=== PATIENT | female | born 1955 | race Two or more races ===

== ENCOUNTER 2018-02-09 18:29 | Emergency (ER) | END 2018-02-09 19:38 | disposition home or self-care (01) | DX: B02.9 Zoster without complications (principal); I10 Essential (primary) hypertension; J45.909 Unspecified asthma, uncomplicated; Z79.899 Other long term (current) drug therapy ==

== ENCOUNTER 2019-11-13 16:28 | Inpatient (IN) | payer MEDICAID ==
[~2019-11-13] VITALS: Ht 160 cm; Wt 90.7 kg
[~2019-11-13 16:28] MED LIST: INHALER; METOPROLOL
[2019-11-13] MEDS ORDERED: ALBUTEROL SULFATE 8 GM HFA.AER.AD IH STA (16:38)
[2019-11-13] MEDS ORDERED: methylPREDNISolone SOD SUCC 125 MG/2 ML VIAL IV ONE (16:45)
--- NOTE | 2019-11-13 16:45 | NUR ---
Pt and family unable to provide information about current home medications at this time.
[2019-11-13] MEDS ORDERED: TERBUTALINE SULFATE 1 MG/1 ML VIAL ONE (16:58)
[2019-11-13] MEDS ORDERED: methylPREDNISolone SOD SUCC 125 MG/2 ML VIAL ONE (16:58)
[2019-11-13] MEDS ORDERED: MAGNESIUM SULFATE/D5W 200 ML ONE (16:59)
[2019-11-13] MEDS ORDERED: TERBUTALINE SULFATE 1 MG/1 ML VIAL SQ ONE (17:00)
[2019-11-13] MEDS ORDERED: MAGNESIUM SULFATE 2 GM in IV DEXTROSE 5% 100 ML IV ONE (17:00)
--- NOTE | 2019-11-13 17:24 | NUR ---
ABG, portable chest x-ray, blood draw & swab for COVID collected, pending results. Monitored closely. Comfort, isolation & safety measures maintained.
[2019-11-13 17:25] LABS: BASOPHILS # (AUTO) 0.2 K/uL (0.0-8.0); BASOPHILS % (AUTO) 1.4 % (0.0-2.0); EOSINOPHILS # (AUTO) 2.1 K/uL (0.0-0.7); EOSINOPHILS % (AUTO) 16.4 % (0.0-7.0); HEMATOCRIT 37.2 % (31.2-41.9); HEMOGLOBIN 12.3 g/dL (10.9-14.3); LYMPHOCYTES # (AUTO) 1.6 K/uL (20.0-40.0); MEAN CORPUSCULAR HEMOGLOBIN 29.4 uug (24.7-32.8); MEAN CORPUSCULAR HGB CONC 33 g/dL (32.3-35.6); MEAN CORPUSCULAR VOLUME 88.6 fL (75.5-95.3); MONOCYTES # (AUTO) 0.7 K/uL (2.0-10.0); MONOCYTES % (AUTO) 5.7 % (0.0-11.0); NEUTROPHILS # (AUTO) 8.5 K/uL (1.8-8.9); NEUTROPHILS % (AUTO) 64.5 % (38.5-71.5); PLATELET COUNT (AUTO) 293 K/uL (179-408); WHITE BLOOD COUNT (AUTO) 13.1 K/uL (3.8-11.8)
[2019-11-13 17:26] LABS: ABG BASE EXCESS 1.5 mmol/L; ABG PCO2 40.4 mmHg (35.0-45.0); ABG PH 7.426 (7.350-7.450); ABG PO2 95.3 mmHg (75.0-100.0); ABG SITE RIGHT RADIAL; COHb 0.9 % (0.5-1.5); MetHb 0.4 % (0.0-1.5); O2Hb 96.2 % (94.0-97.0); VENT MODE Nasal Cannula
--- NOTE | 2019-11-13 17:27 | NUR ---
MD is talking to patient's family in ER waiting room.
[2019-11-13 17:40] LABS: CREATININE 0.9 mg/dL (0.6-1.3); POTASSIUM 3.7 mmol/L (3.5-5.1)
[2019-11-13 17:45] LABS: BILIRUBIN,DIRECT 0.1 mg/dL (0.0-0.2); BILIRUBIN,TOTAL 0.3 mg/dL (0.2-1.0); TOTAL PROTEIN, SERUM 7.4 g/dL (6.4-8.2)
--- NOTE | 2019-11-13 18:04 | NUR ---
Bed 320 (with nurse Teresa assigned from overnight cashier) was given by dry pan charger Rohoni. Patient feels a little better.
--- NOTE | 2019-11-13 18:39 | NUR ---
Patient is resting comfortably on gurney with eyes closed in high-fowlers position, for admission to 3rd floor after 1930@this time.
[2019-11-13] MEDS ORDERED: ONDANSETRON 4 MG/2 ML VIAL IV PRN (18:45)
[2019-11-13] MEDS ORDERED: IPRATROPIUM BROMIDE 0.5 MG/2.5 ML NEBU NEB PRN (18:45)
[2019-11-13] MEDS ORDERED: HYDROCODONE/APAP 5-325MG TABLET PO PRN (18:45)
[2019-11-13] MEDS ORDERED: Z GUARD REMEDY PASTE 57 GM TUBE TOP PRN (18:45)
[2019-11-13] MEDS ORDERED: MAGNESIUM HYDROXIDE 30 ML LIQUID UDC PO PRN (18:45)
[2019-11-13] MEDS ORDERED: ALBUTEROL SULFATE 2.5 MG/ 0.5 ML NEBU NEB PRN (18:45)
[2019-11-13] MEDS ORDERED: ACETAMINOPHEN 325 MG TABLET PO PRN (18:45)
--- NOTE | 2019-11-13 18:49 | NUR ---
Unverified inpatient medication orders seen in [facility], pending our pharmacist to verify these inpatient meds@this time.
--- NOTE | 2019-11-13 18:59 | NUR ---
Patient is awake now, with intermittent congestive coughing heard, monitored closely.
--- NOTE | 2019-11-13 19:01 | NUR ---
Hands off report given to RN Rolando, patient is still for transfer to telemtry floor, pending RN acceptance.
--- NOTE | 2019-11-13 19:04 | NUR ---
Assumed care of patient. Awaiting inpatient admission at this time. No acute distress noted.
--- NOTE | 2019-11-13 19:40 | NUR ---
Report given to Teresa ROBINS on Tele
--- NOTE | 2019-11-13 19:54 | NUR ---
Pt. admitted to Tele , under care of Rudolph Davis List completed
--- NOTE | 2019-11-13 20:05 | NUR ---
ADMITTED TO RM 320 VIA GURNEY FROM ER W/ ADM DX OF RESP. FAILURE/ ACUTE ASTHMA. ALERT & ORIENTED X4. HEP LOCK IN ON R HAND INTACT & PATENT. PLACED ON O2 @ 2LNC W/ O2 SAT OF 95%. KEPT HOB ELEVATED PER PT. REQUEST. NOT IN ANY DISTRESS.
[2019-11-13 20:21] VITALS: BP 108/47
[2019-11-13] MEDS: ENOXAPARIN SODIUM 40 MG/0.4 ML DISP.SYRIN SQ SCH (20:59)
--- NOTE | 2019-11-14 | NUR ---
PT. SLEPT INTERMITENTLY. NOT IN ANY DISTRESS.
[2019-11-14] MEDS: methylPREDNISolone SOD SUCC 40 MG/ML VIAL IV SCH ×5 (00:01→23:34)
[2019-11-14 00:15] VITALS: BP 115/46
--- NOTE | 2019-11-14 06:00 | NUR ---
HEP LOCK INTACT & PATENT. NOT IN NAY DISTRESS.
[2019-11-14 06:21] VITALS: BP 119/53
[2019-11-14] MEDS: PANTOPRAZOLE SODIUM 40 MG TABLET.DR PO SCH (06:21)
[2019-11-14 06:46] LABS: BASOPHILS # (AUTO) 0.1 K/uL (0.0-8.0); BASOPHILS % (AUTO) 0.6 % (0.0-2.0); EOSINOPHILS % (AUTO) 0.1 % (0.0-7.0); HEMATOCRIT 37.4 % (31.2-41.9); HEMOGLOBIN 12.5 g/dL (10.9-14.3); LYMPHOCYTES % (AUTO) 9.7 % (20.5-51.5); MEAN CORPUSCULAR HEMOGLOBIN 29.4 uug (24.7-32.8); MEAN CORPUSCULAR HGB CONC 33 g/dL (32.3-35.6); MONOCYTES # (AUTO) 0.1 K/uL (2.0-10.0); MONOCYTES % (AUTO) 0.7 % (0.0-11.0); NEUTROPHILS # (AUTO) 9.4 K/uL (1.8-8.9); NEUTROPHILS % (AUTO) 88.9 % (38.5-71.5); PLATELET COUNT (AUTO) 272 K/uL (179-408); RED BLOOD CELL COUNT(AUTO) 4.25 MIL/uL (3.63-4.92); WHITE BLOOD COUNT (AUTO) 10.5 K/uL (3.8-11.8)
[2019-11-14 06:59] LABS: CREATININE 0.6 mg/dL (0.6-1.3); MAGNESIUM 2.3 mg/dL (1.8-2.4); PHOSPHOROUS 2.8 mg/dL (2.5-4.9); POTASSIUM 4.1 mmol/L (3.5-5.1)
[2019-11-14 07:06] LABS: THYROID STIMULATING HORMONE 0.247 mIU/mL (0.358-3.740)
[2019-11-14 08:42] VITALS: BP 109/44
--- NOTE | 2019-11-14 09:47 | NUR ---
Pt comfortably sitting in bed, alert and orientated. Hep lock in place in right hand. On 2L of O2 via nasal canula with no signs of distress of SOB. call light within reach and patient was made comfortable. Will continue to monitor.
[2019-11-14] MEDS ORDERED: DEXTROSE 50% 50 ML DISP.SYRIN IV PRN (10:30)
[2019-11-14] MEDS: BLOOD SUGAR DIAGNOSTIC 1 EACH STRIP VI SCH ×3 (11:26→20:25)
[2019-11-14] MEDS: INSULIN REGULAR, HUMAN 300 UNIT/3 ML VIAL SQ PRN ×2 (11:48→17:15)
[2019-11-14 15:00] VITALS: BP 74/29
[2019-11-14 15:12] VITALS: BP 74/18
--- NOTE | 2019-11-14 18:00 | NUR ---
Pt is awake, alert, and fully oriented. Able to make needs known and able to comprehend directions. On oxygen @ 2L via nasal canula with know signs of SOB or distress. No complaints of pain. Afebrile. All due meds given on time. Recent blood sugar was 208 - 6 units regular insulin given per sliding scale. All needs were attended and met. Bed in lowest position, call light within reach. Will endorse to oncoming nurse.
[2019-11-14 20:00] VITALS: BP 146/55
[2019-11-14] MEDS: SIMVASTATIN 20 MG TABLET PO SCH (20:25)
[2019-11-14] MEDS: ENOXAPARIN SODIUM 40 MG/0.4 ML DISP.SYRIN SQ SCH (20:27)
[2019-11-14] MEDS: INSULIN REGULAR, HUMAN 300 UNITS/3 ML VIAL SQ PRN (20:27)
[2019-11-15] VITALS: BP 152/78
[2019-11-15] MEDS: ZOLPIDEM 5 MG TABLET PO PRN (00:34)
[2019-11-15 04:00] VITALS: BP 136/63
[2019-11-15] MEDS: methylPREDNISolone SOD SUCC 40 MG/ML VIAL IV SCH (06:01)
[2019-11-15] MEDS: PANTOPRAZOLE SODIUM 40 MG TABLET.DR PO SCH (06:07)
[2019-11-15] MEDS: BLOOD SUGAR DIAGNOSTIC 1 EACH STRIP VI SCH ×4 (06:24→20:24)
[2019-11-15] MEDS: INSULIN REGULAR, HUMAN 300 UNIT/3 ML VIAL SQ PRN ×3 (07:43→16:05)
[2019-11-15 09:56] LABS: CREATININE 0.7 mg/dL (0.6-1.3); MAGNESIUM 2.5 mg/dL (1.8-2.4); PHOSPHOROUS 3.9 mg/dL (2.5-4.9); POTASSIUM 3.6 mmol/L (3.5-5.1)
[2019-11-15 10:00] LABS: BASOPHILS % (AUTO) 0.1 % (0.0-2.0); EOSINOPHILS % (AUTO) 0.1 % (0.0-7.0); HEMATOCRIT 36.7 % (31.2-41.9); HEMOGLOBIN 12.3 g/dL (10.9-14.3); LYMPHOCYTES # (AUTO) 1.2 K/uL (20.0-40.0); LYMPHOCYTES % (AUTO) 6.5 % (20.5-51.5); MEAN CORPUSCULAR HEMOGLOBIN 29.3 uug (24.7-32.8); MEAN CORPUSCULAR HGB CONC 33 g/dL (32.3-35.6); MEAN CORPUSCULAR VOLUME 87.8 fL (75.5-95.3); MONOCYTES # (AUTO) 0.4 K/uL (2.0-10.0); MONOCYTES % (AUTO) 2.3 % (0.0-11.0); NEUTROPHILS # (AUTO) 16.1 K/uL (1.8-8.9); PLATELET COUNT (AUTO) 291 K/uL (179-408); RED BLOOD CELL COUNT(AUTO) 4.18 MIL/uL (3.63-4.92); WHITE BLOOD COUNT (AUTO) 17.7 K/uL (3.8-11.8)
[2019-11-15] MEDS ORDERED: methylPREDNISolone SOD SUCC 125 MG/2 ML VIAL IV SCH (12:00)
[2019-11-15 12:23] VITALS: BP 154/82
--- NOTE | 2019-11-15 12:54 | NUR ---
pt do not have any iv access made aware
[2019-11-15] MEDS: predniSONE 20 MG TABLET PO SCH (13:57)
[2019-11-15 15:22] VITALS: BP 129/54
--- NOTE | 2019-11-15 19:30 | NUR ---
Received patient sitting in bed. AAOx4. No s/s of acute distress noted at this time. Pt on 2L NC O2 Saturation 97%. Pt denies SOB and pain at this time. No IV access noted, is aware. Safety measures in place and will continue to monitor.
[2019-11-15] MEDS: SIMVASTATIN 20 MG TABLET PO SCH (20:18)
[2019-11-15] MEDS: ENOXAPARIN SODIUM 40 MG/0.4 ML DISP.SYRIN SQ SCH (20:18)
[2019-11-15 20:23] VITALS: BP 139/58
[2019-11-15] MEDS: INSULIN REGULAR, HUMAN 300 UNITS/3 ML VIAL SQ PRN (20:28)
[2019-11-16 01:04] VITALS: BP 144/73
[2019-11-16] MEDS: ZOLPIDEM 5 MG TABLET PO PRN (02:17)
[2019-11-16 05:18] VITALS: BP 138/63
[2019-11-16 06:02] LABS: BASOPHILS % (AUTO) 0.2 % (0.0-2.0); EOSINOPHILS % (AUTO) 0.1 % (0.0-7.0); HEMATOCRIT 36.9 % (31.2-41.9); HEMOGLOBIN 12.1 g/dL (10.9-14.3); LYMPHOCYTES # (AUTO) 2.5 K/uL (20.0-40.0); LYMPHOCYTES % (AUTO) 15.3 % (20.5-51.5); MEAN CORPUSCULAR HGB CONC 33 g/dL (32.3-35.6); MONOCYTES # (AUTO) 1.1 K/uL (2.0-10.0); MONOCYTES % (AUTO) 6.4 % (0.0-11.0); PLATELET COUNT (AUTO) 287 K/uL (179-408); RED BLOOD CELL COUNT(AUTO) 4.19 MIL/uL (3.63-4.92); WHITE BLOOD COUNT (AUTO) 16.7 K/uL (3.8-11.8)
[2019-11-16 06:19] LABS: CREATININE 0.7 mg/dL (0.6-1.3); MAGNESIUM 2.8 mg/dL (1.8-2.4); POTASSIUM 3.7 mmol/L (3.5-5.1)
[2019-11-16] MEDS: PANTOPRAZOLE SODIUM 40 MG TABLET.DR PO SCH (06:46)
[2019-11-16] MEDS: BLOOD SUGAR DIAGNOSTIC 1 EACH STRIP VI SCH ×2 (06:47→11:35)
[2019-11-16] MEDS: predniSONE 20 MG TABLET PO SCH (08:02)
[2019-11-16] MEDS: INSULIN REGULAR, HUMAN 300 UNIT/3 ML VIAL SQ PRN (11:42)
[2019-11-16] MEDS ORDERED: ALBU8.5H8 INH (12:07)
[2019-11-16] MEDS ORDERED: METH4TAB3 PO (12:07)
--- NOTE | 2019-11-16 13:42 | NUR ---
dc orders received noted and carried out.dc instruction and education given to the pt.pt said she will follow up with her pcp in one week.pt left the facility via private car in stable condition
== END 2019-11-16 13:30 | disposition home or self-care (01) | DRG 133 ==
LOC: ER 16:30 → TELE3 19:44 → TELE-TD3 11-14 17:15 → TELE3 11-14 17:27
PROVIDERS: ADMIT Student in an Organized Health Care Education/Training Program; ATTEND Student in an Organized Health Care Education/Training Program
DX: J96.01 Acute respiratory failure with hypoxia (principal); J45.901 Unspecified asthma with (acute) exacerbation; I10 Essential (primary) hypertension; D72.829 Elevated white blood cell count, unspecified; E11.9 Type 2 diabetes mellitus without complications; E78.5 Hyperlipidemia, unspecified; R94.6 Abnormal results of thyroid function studies
CPT/HCPCS: 36415; 36600; 70030-TC; 71045; 83605; 83735; 84100; 84443; 85025; 87040; 93005; 94664; A4663; G0378; J1650; J1815; J2920; J2930; J3105; J3475; J3535; J3590; J7512